=== PATIENT | female | born 1995 | race African-American/Black ===

== ENCOUNTER 2017-08-09 08:34 | Emergency (ER) | payer SELFPAY ==
[~2017-08-09] VITALS: Ht 170.2 cm; Wt 95.3 kg
[2017-08-09 08:42] VITALS: BP 129/65
[2017-08-09] MEDS ORDERED: KETOROLAC TROMETH 60MG/2ML VIAL IM ONE (09:30)
== END 2017-08-09 10:03 | disposition home or self-care (01) ==
LOC: ER 08:34
DX: M23.92 Unspecified internal derangement of left knee (principal)
CPT/HCPCS: 73562; 96372; 99284; J1885

== ENCOUNTER 2017-12-11 09:40 | Emergency (ER) | payer SELFPAY ==
[~2017-12-11] VITALS: Ht 170.2 cm; Wt 95.3 kg
[2017-12-11 09:48] VITALS: BP 136/111
[2017-12-11 10:59] LABS: Basophils # (auto) 0 uL; Eosinophils # (auto) 0.1 uL; Hemoglobin 12.5 g/dL (12.2-16.2); Mean Corpuscular Hemoglobin 24.4 pg (28.0-32.0)
[2017-12-11 11:01] LABS: Basophils % (auto) 0.2 % (0.0-2.0); Eosinophils % (auto) 0.7 % (0.0-7.0); Hematocrit 38.9 % (36.0-46.0); Lymphocytes % (auto) 20.6 % (10.0-50.0); Mean Corpuscular Hgb Conc. 32.1 g/dL (32.0-36.0); Mean Corpuscular Volume 76.2 fL (80.0-100.0); Monocytes # (auto) 0.5 uL; Monocytes % (auto) 5.5 % (0.0-12.0); Neutrophils # (auto) 7.2 uL; Platelet Count (auto) 310 10^3/uL (140-450); Red Cell Distribution Width 17.2 % (11.8-14.3); White Blood Cell 9.9 10^3/uL (4.4-10.8)
[2017-12-11 11:16] LABS: Alanine Aminotransferase 19 U/L (13-56); Albumin 3.8 g/dL (3.4-5.0); Anion Gap 7 (5-15); Aspartate Aminotransferase 5 U/L (15-37); Blood Urea Nitrogen 7 mg/dL (7-18); Calcium 9.2 mg/dL (8.5-10.1); Carbon Dioxide 24 mmol/L (21-32); Chloride 107 mmol/L (98-107); Glucose 92 mg/dL (74-106); Magnesium 2.2 mg/dL (1.6-2.6); Potassium 3.8 mmol/L (3.5-5.1); Sodium 138 mmol/L (136-145)
[2017-12-11 11:21] LABS: Alkaline Phosphatase 73 U/L (45-117); BUN/Creatinine Ratio 8.6; Bilirubin, Total 0.4 mg/dL (0.2-1.0); GFR African American 113 mL/min; GFR Non-African American 93 mL/min; Total Protein 8.2 g/dL (6.4-8.2)
[2017-12-11 13:14] LABS: Urine Bacteria FEW /hpf (None Seen); Urine Blood Negative /uL (Negative); Urine Mucus FEW (None Seen); Urine Specific Gravity 1.021 (1.001-1.035); Urine WBC 1 /hpf (0 - 5)
[2017-12-11 13:25] LABS: Alcohol, Urine < 3.0 mg/dL (0-5); Amphetamine Screen, Urine NEGATIVE (NEGATIVE); Barbiturate Scree,Urine NEGATIVE (NEGATIVE); Benzodiazephine Screen, Urine NEGATIVE (NEGATIVE); Cannabinoid Screen, Urine NEGATIVE (NEGATIVE); Cocaine Screen, Urine NEGATIVE (NEGATIVE); Opiate Scree,Urine NEGATIVE (NEGATIVE); Phencyclidine Screen, Urine NEGATIVE (NEGATIVE)
== END 2017-12-11 14:14 | disposition left against medical advice (07) ==
LOC: ER 09:42
DX: R07.89 Other chest pain (principal); R42 Dizziness and giddiness; Z53.21 Procedure and treatment not carried out due to patient leaving prior to being seen by health care provider
CPT/HCPCS: 36415; 80053; 80307; 81001; 81025; 83735; 84484; 85025; 93005

== ENCOUNTER 2018-09-16 15:28 | Emergency (ER) | payer SELFPAY ==
[~2018-09-16] VITALS: Ht 172.7 cm; Wt 90.7 kg
[2018-09-16 15:39] VITALS: BP 125/78
== END 2018-09-16 17:36 | disposition home or self-care (01) ==
LOC: ER 15:37
DX: J03.90 Acute tonsillitis, unspecified (principal); N39.0 Urinary tract infection, site not specified

== ENCOUNTER 2019-02-11 12:32 | Emergency (ER) | payer SELFPAY ==
[~2019-02-11] VITALS: Ht 172.7 cm; Wt 90.7 kg
[2019-02-11 14:45] VITALS: BP 131/68
== END 2019-02-11 15:19 | disposition home or self-care (01) ==
LOC: ER 12:32
DX: J03.90 Acute tonsillitis, unspecified (principal)

== ENCOUNTER 2019-04-21 13:29 | Emergency (ER) | payer SELFPAY ==
[~2019-04-21] VITALS: Ht 172.7 cm; Wt 117.9 kg
[2019-04-21 14:32] LABS: Basophils # (auto) 0 uL; Basophils % (auto) 0.2 % (0.0-2.0); Eosinophils # (auto) 0.1 uL; Eosinophils % (auto) 0.6 % (0.0-7.0); Hematocrit 38.6 % (36.0-46.0); Hemoglobin 12.2 g/dL (12.2-16.2); Lymphocytes # (auto) 2.8 uL; Mean Corpuscular Hemoglobin 23.9 pg (28.0-32.0); Mean Corpuscular Hgb Conc. 31.5 g/dL (32.0-36.0); Mean Corpuscular Volume 76.1 fL (80.0-100.0); Monocytes # (auto) 0.7 uL; Neutrophils # (auto) 9.6 uL; Neutrophils % (auto) 73.2 % (37.0-80.0); Platelet Count (auto) 276 10^3/uL (140-450); Red Blood Cells 5.07 10^6/uL (4.0-5.20); White Blood Cell 13.1 10^3/uL (4.4-10.8)
[2019-04-21 14:43] LABS: Anion Gap 7 (5-15); Blood Urea Nitrogen 6 mg/dL (7-18); Calcium 9.2 mg/dL (8.5-10.1); Carbon Dioxide 23 mmol/L (21-32); Chloride 108 mmol/L (98-107); Glucose 84 mg/dL (74-106); Potassium 3.6 mmol/L (3.5-5.1); Sodium 138 mmol/L (136-145)
[2019-04-21 14:49] LABS: Alanine Aminotransferase 15 U/L (13-56); Alkaline Phosphatase 75 U/L (45-117); Aspartate Aminotransferase 5 U/L (15-37); BUN/Creatinine Ratio 7.1; Bilirubin, Total 0.5 mg/dL (0.2-1.0); GFR African American 106 mL/min; GFR Non-African American 87 mL/min; Total Protein 7.9 g/dL (6.4-8.2)
[2019-04-21 16:30] VITALS: BP 127/83
== END 2019-04-21 17:15 | disposition home or self-care (01) ==
LOC: EDBD 13:29 → ER 13:29
DX: J20.9 Acute bronchitis, unspecified (principal)
CPT/HCPCS: 36415; 71046; 80053; 84484; 85025; 93005

== ENCOUNTER 2019-12-06 12:49 | Emergency (ER) | payer SELFPAY ==
[~2019-12-06] VITALS: Ht 172.7 cm; Wt 100.2 kg
[2019-12-06 13:04] VITALS: BP 136/62
[2019-12-06] MEDS ORDERED: IBUPROFEN 800 MG TAB PO ONE (16:45)
== END 2019-12-06 17:13 | disposition home or self-care (01) ==
LOC: ER 12:49
DX: S93.401A Sprain of unspecified ligament of right ankle, initial encounter (principal); X58.XXXA Exposure to other specified factors, initial encounter; Y93.89 Activity, other specified; Y92.89 Other specified places as the place of occurrence of the external cause; Y99.8 Other external cause status
CPT/HCPCS: 73610

== ENCOUNTER 2020-01-14 11:35 | Emergency (ER) | payer MEDICAID, OTHER ==
[~2020-01-14] VITALS: Ht 172.7 cm; Wt 90.7 kg
[2020-01-14 11:46] VITALS: BP 124/68
[2020-01-14] MEDS ORDERED: KETOROLAC TROMETH 60MG/2ML VIAL IM ONE (14:00)
== END 2020-01-14 14:52 | disposition home or self-care (01) ==
LOC: ER 11:35
DX: S93.401A Sprain of unspecified ligament of right ankle, initial encounter (principal); X58.XXXA Exposure to other specified factors, initial encounter; Y93.89 Activity, other specified; Y92.89 Other specified places as the place of occurrence of the external cause; Y99.8 Other external cause status
CPT/HCPCS: 73610; 96372; 99283; J1885

== ENCOUNTER 2020-11-10 08:10 | Emergency (ER) | payer MEDICAID, OTHER ==
[~2020-11-10] VITALS: Ht 172.7 cm; Wt 90.7 kg
[2020-11-10 08:29] VITALS: BP 126/59
[2020-11-10] MEDS ORDERED: KETOROLAC TROMETH 60MG/2ML VIAL IM ONE (09:00)
== END 2020-11-10 09:45 | disposition home or self-care (01) ==
LOC: ER 08:10
DX: M54.42 Lumbago with sciatica, left side (principal)
CPT/HCPCS: 96372; 99283; J1885

== ENCOUNTER 2021-12-25 14:37 | Emergency (ER) | payer OTHER ==
[~2021-12-25] VITALS: Ht 350.5 cm; Wt 100.0 kg
[2021-12-25 14:55] VITALS: BP 131/56
[2021-12-25 16:17] LABS: Basophils # (auto) 0 10 ^3/uL (0-0.2); Basophils % (auto) 0.1 % (0.0-2.0); Eosinophils # (auto) 0.3 10 ^3/uL (0-0.8); Eosinophils % (auto) 3.5 % (0.0-7.0); Hematocrit 40.6 % (36.0-46.0); Hemoglobin 13.7 g/dL (12.2-16.2); Lymphocytes # (auto) 2.6 10 ^3/uL (0.4-5.4); Lymphocytes % (auto) 29.2 % (10.0-50.0); Mean Corpuscular Hemoglobin 27.6 pg (28.0-32.0); Mean Corpuscular Hgb Conc. 33.9 g/dL (32.0-36.0); Mean Corpuscular Volume 81.5 fL (80.0-100.0); Monocytes # (auto) 0.5 10 ^3/uL (0-1.3); Monocytes % (auto) 5.7 % (0.0-12.0); Neutrophils # (auto) 5.4 10 ^3/uL (1.6-8.6); Neutrophils % (auto) 61.5 % (37.0-80.0); Red Blood Cells 4.98 10^6/uL (4.0-5.20); Red Cell Distribution Width 15.1 % (11.8-14.3); White Blood Cell 8.8 10^3/uL (4.4-10.8)
[2021-12-25 16:28] LABS: Calcium 8.7 mg/dL (8.5-10.1); Chloride 111 mmol/L (98-107); Potassium 4.2 mmol/L (3.5-5.1); Sodium 142 mmol/L (136-145)
[2021-12-25 16:30] LABS: Alanine Aminotransferase 23 U/L (13-56); Albumin 3.9 g/dL (3.4-5.0); Anion Gap 6 (5-15); Aspartate Aminotransferase < 3 U/L (15-37); BUN/Creatinine Ratio 10.3; Blood Urea Nitrogen 8 mg/dL (7-18); Carbon Dioxide 25 mmol/L (21-32); GFR African American 114 mL/min; GFR Non-African American 94 mL/min; Glucose 78 mg/dL (74-106)
[2021-12-25 16:34] LABS: Alkaline Phosphatase 53 U/L (45-117); Bilirubin, Total 0.3 mg/dL (0.2-1.0); Total Protein 6.6 g/dL (6.4-8.2)
[2021-12-25] MEDS ORDERED: LORazepam 0.5 MG TAB PO ONE (17:00)
[2021-12-25] MEDS ORDERED: ASPirin 325 MG TAB PO ONE (17:00)
[2021-12-25 19:40] LABS: Urine Bacteria NONE SEEN /hpf (None Seen); Urine Blood Negative /uL (Negative); Urine WBC <1 /hpf (0 - 5)
[2021-12-25 19:44] LABS: Urine Specific Gravity > 1.050 (1.001-1.035)
== END 2021-12-25 23:25 | disposition left against medical advice (07) ==
LOC: ER 14:37
DX: R07.89 Other chest pain (principal)
CPT/HCPCS: 36415; 71045; 71275; 80053; 81001; 83880; 84484; 85025; 93005; 99285; Q9967

== ENCOUNTER 2022-03-03 14:51 | Emergency (ER) | payer OTHER ==
[~2022-03-03] VITALS: Ht 167.6 cm; Wt 94.6 kg
[2022-03-03 15:39] LABS: Basophils # (auto) 0 10 ^3/uL (0-0.2); Basophils % (auto) 0.3 % (0.0-2.0); Eosinophils # (auto) 0.2 10 ^3/uL (0-0.8); Eosinophils % (auto) 3.4 % (0.0-7.0); Hematocrit 40.8 % (36.0-46.0); Hemoglobin 13.7 g/dL (12.2-16.2); Lymphocytes # (auto) 2.3 10 ^3/uL (0.4-5.4); Lymphocytes % (auto) 36.3 % (10.0-50.0); Mean Corpuscular Hemoglobin 27.8 pg (28.0-32.0); Mean Corpuscular Hgb Conc. 33.5 g/dL (32.0-36.0); Monocytes # (auto) 0.4 10 ^3/uL (0-1.3); Neutrophils # (auto) 3.4 10 ^3/uL (1.6-8.6); Nucleated Red Blood Cells % 0.1 %; Red Blood Cells 4.91 10^6/uL (4.0-5.20); Red Cell Distribution Width 14.9 % (11.8-14.3); White Blood Cell 6.4 10^3/uL (4.4-10.8)
[2022-03-03 15:44] VITALS: BP 106/65
[2022-03-03 16:11] LABS: Albumin 4.1 g/dL (3.4-5.0); BUN/Creatinine Ratio 8.7; Calcium 9.1 mg/dL (8.5-10.1); Potassium 4.1 mmol/L (3.5-5.1)
[2022-03-03 16:14] LABS: Bilirubin, Total 0.5 mg/dL (0.2-1.0); Total Protein 7.1 g/dL (6.4-8.2)
[2022-03-03] MEDS ORDERED: ONDANSETRON ODT 4 MG TAB PO ONE (16:30)
[2022-03-03] MEDS ORDERED: KETOROLAC TROMETH 60MG/2ML VIAL IM ONE (16:30)
[2022-03-03 16:38] LABS: Urine Bacteria NONE SEEN /hpf (None Seen); Urine Blood Negative /uL (Negative); Urine Specific Gravity 1.013 (1.001-1.035); Urine WBC 1 /hpf (0 - 5)
[2022-03-03] MEDS ORDERED: ONDA-144 PO (16:47)
[2022-03-03] MEDS ORDERED: PANT40TA2 PO (16:47)
== END 2022-03-03 17:04 | disposition home or self-care (01) ==
LOC: ER 14:51
DX: K29.00 Acute gastritis without bleeding (principal); K21.9 Gastro-esophageal reflux disease without esophagitis; Z32.02 Encounter for pregnancy test, result negative
CPT/HCPCS: 36415; 76705; 80053; 81001; 81025; 83690; 85025; 96372; 99284; J1885; Q0162

== ENCOUNTER 2022-03-08 09:59 | Inpatient (IN) | payer OTHER ==
[~2022-03-08] VITALS: Ht 172.7 cm; Wt 93.4 kg
[~2022-03-08 09:59] MED LIST: ONDA-144 PO; PANT40TA2 PO
[2022-03-08 10:13] VITALS: BP 110/59
[2022-03-08 10:41] LABS: Basophils # (auto) 0 10 ^3/uL (0-0.2); Basophils % (auto) 0.4 % (0.0-2.0); Eosinophils # (auto) 0.2 10 ^3/uL (0-0.8); Eosinophils % (auto) 3.5 % (0.0-7.0); Hematocrit 40.7 % (36.0-46.0); Hemoglobin 13.6 g/dL (12.2-16.2); Lymphocytes # (auto) 1.7 10 ^3/uL (0.4-5.4); Lymphocytes % (auto) 27.7 % (10.0-50.0); Mean Corpuscular Hgb Conc. 33.6 g/dL (32.0-36.0); Mean Corpuscular Volume 83.5 fL (80.0-100.0); Monocytes # (auto) 0.4 10 ^3/uL (0-1.3); Monocytes % (auto) 6.3 % (0.0-12.0); Neutrophils # (auto) 3.7 10 ^3/uL (1.6-8.6); Neutrophils % (auto) 62.1 % (37.0-80.0); Nucleated Red Blood Cells % 0.1 %; Red Blood Cells 4.87 10^6/uL (4.0-5.20); Red Cell Distribution Width 14.5 % (11.8-14.3)
[2022-03-08 10:55] LABS: Alanine Aminotransferase 11 U/L (13-56); Albumin 4.3 g/dL (3.4-5.0); Anion Gap 1 (5-15); Blood Urea Nitrogen 8 mg/dL (7-18); Calcium 9.1 mg/dL (8.5-10.1); Carbon Dioxide 26 mmol/L (21-32); Chloride 114 mmol/L (98-107); Glucose 84 mg/dL (74-106); Lipase 229 U/L (73-393); Potassium 4.2 mmol/L (3.5-5.1); Sodium 141 mmol/L (136-145)
[2022-03-08 10:58] LABS: Alkaline Phosphatase 47 U/L (45-117); Aspartate Aminotransferase < 3 U/L (15-37); Bilirubin, Total 0.6 mg/dL (0.2-1.0); GFR African American 111 mL/min; GFR Non-African American 91 mL/min; Total Protein 7.3 g/dL (6.4-8.2)
[2022-03-08 11:05] LABS: Urine Bacteria NONE SEEN /hpf (None Seen); Urine Blood Negative /uL (Negative); Urine Specific Gravity 1.005 (1.001-1.035); Urine WBC 1 /hpf (0 - 5)
[2022-03-08] MEDS ORDERED: ONDANSETRON HCL 4 MG/2 ML VIAL IV ONE (12:00)
[2022-03-08] MEDS ORDERED: SODIUM CHLORIDE 0.9% 1,000 ML IV ONE ×2 (12:00)
[2022-03-08] MEDS ORDERED: MORPHINE SULFATE 4 MG/ML SYR/VIAL IV ONE (12:00)
[2022-03-08] MEDS ORDERED: MORPHINE SULFATE INJ 2 MG/ml SYRG IV PRN (20:30)
[2022-03-08] MEDS ORDERED: DOCUSATE SOD 100 MG CAP PO PRN (20:30)
[2022-03-08] MEDS ORDERED: LORazepam 0.5 MG TAB PO PRN (20:30)
[2022-03-08] MEDS ORDERED: SODIUM CHLORIDE 0.9% 1,000 ML IV SCH (20:30)
[2022-03-08] MEDS ORDERED: ACETAMINOPHEN 325 MG TAB PO PRN (20:30)
[2022-03-08] MEDS ORDERED: ONDANSETRON HCL 4 MG/2 ML VIAL IV PRN (20:30)
[2022-03-08] MEDS ORDERED: TEMAZEPAM 15 MG CAP PO PRN (20:30)
[2022-03-08] MEDS ORDERED: HYDROcodone-ACET 5/325MG TAB PO PRN (20:30)
[2022-03-08] MEDS ORDERED: MAALOX PLUS or MAALOX 30 ML PO PRN (20:30)
== END 2022-03-08 21:10 | disposition left against medical advice (07) | DRG 241 ==
LOC: ER 09:59 → OVERFLOW 20:35
PROVIDERS: ADMIT Hospitalist; ATTEND Hospitalist
DX: K29.70 Gastritis, unspecified, without bleeding (principal); E66.9 Obesity, unspecified; Z53.21 Procedure and treatment not carried out due to patient leaving prior to being seen by health care provider; Z68.31 Body mass index [BMI] 31.0-31.9, adult; K80.20 Calculus of gallbladder without cholecystitis without obstruction
CPT/HCPCS: 36415; 80053; 81001; 83690; 84702; 85025; G0378